=== PATIENT | male | born 1990 | race Caucasian/White ===

== ENCOUNTER → 2017-07-24 | Outpatient (CLI) | payer SELFPAY ==
--- NOTE | 2017-07-24 15:04 | DI ---
CT SCAN OF THE NECK WITH IV CONTRAST, 07/24/2017 1:07 PM : Clinical History: Neck mass. Previous Exam: None at this facility. Scans are obtained from below the sternal notch to the petrous pyramids with IV contrast. 95 ml of I sovue 300 was injected IV. The vertebral bodies are of normal height and size. The disc spaces are normal. The carotid and verte bral arteries are normal. There are no soft tissue masses on either side. No lymphadenopathy is ident ified. Both submandibular glands and the parotid glands are normal. There is thyromegaly without evid ence of a mass. The right and left lobes of the thyroid gland measure 18 x 29 x 60 mm and 17 x 26 x 6 5 mm. There is a 5 mm low-density nodule in the lower pole of the left lobe and this probably is a no nfunctioning nodule. Readin. No neck mass is seen in either side of the neck. There is no adenopathy present. 2. There is symmetric enlargement of the thyroid gland. There is a low-density 5 mm nodule in the lo wer pole of the left lobe. This probably represents a nonfunctioning nodule. If further evaluation of this nodule is required, then thyroid ultrasound would be indicated.
== END ==
LOC: CT 12:51
PROVIDERS: ATTEND Family Medicine
DX: R22.1 Localized swelling, mass and lump, neck (principal); E04.9 Nontoxic goiter, unspecified
CPT/HCPCS: 70491